=== PATIENT | male | born 1990 | race Hispanic/Latino ===

== ENCOUNTER 2021-01-30 22:35 | Emergency (ER) | payer OTHER ==
[~2021-01-30] VITALS: Ht 167.6 cm; Wt 74.9 kg
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
[2021-01-31] MEDS ORDERED: OXYCODONE/APAP 5MG/325MG(BULK FOR ED) 1 TABLET PO ONE (02:30)
[2021-01-31] MEDS ORDERED: PERC5TAB12 PO (02:33)
[2021-01-31 02:56] VITALS: BP 140/87
== END 2021-01-31 02:58 | disposition home or self-care (01) ==
LOC: M ED 22:35
DX: S52.311A Greenstick fracture of shaft of radius, right arm, initial encounter for closed fracture (principal); W22.09XA Striking against other stationary object, initial encounter; Y92.9 Unspecified place or not applicable; Y93.9 Activity, unspecified; Y99.1 Military activity

== ENCOUNTER 2021-02-12 12:59 | Day surgery (SDC) | payer OTHER ==
[~2021-02-12] VITALS: Ht 167.6 cm; Wt 72.6 kg
[~2021-02-12 12:59] MED LIST: LR 1,000 ML IV ONE; PERC5TAB12 PO; ceFAZolin SOD 2 GM in IV 1 EA IV ONE
[2021-02-12] MEDS ORDERED: LIDOCAINE 2% 100MG/5ML SDV (FOR ANES.) As Ordered ONE (13:44)
[2021-02-12] MEDS ORDERED: fentaNYL 100 MCG/2 ML INJECTION (J3010) As Ordered ONE ×2 (13:44→17:45)
[2021-02-12] MEDS ORDERED: propofoL 200 MG/20 ML VIAL As Ordered ONE ×2 (13:44→14:50)
[2021-02-12] MEDS ORDERED: MIDAZOLAM INJ 2MG/2ML VIAL (J2250 PER 1MG) As Ordered ONE (13:44)
[2021-02-12] MEDS ORDERED: ROCURONIUM BROMIDE 50 MG/5 ML VIAL As Ordered ONE (13:44)
[2021-02-12] MEDS ORDERED: BUPIVACAINE/EPIN 0.25% 30 ML VIAL As Ordered ONE (13:52)
[2021-02-12] MEDS ORDERED: TRANEXAMIC ACID 100 MG/ML 10ML VIAL As Ordered ONE ×3 (14:48→16:53)
[2021-02-12] MEDS ORDERED: HYDROmorphone HCL 2 MG/ML 1ML VIAL As Ordered ONE (14:58)
[2021-02-12] MEDS ORDERED: ONDANSETRON 4MG/2ML VIAL As Ordered ONE ×2 (15:07→17:45)
[2021-02-12] MEDS ORDERED: KETOROLAC 60MG 2ML VIAL As Ordered ONE (15:07)
[2021-02-12] MEDS ORDERED: SUGAMMADEX SODIUM 500 MG/5 ML VIAL (BRIDION) As Ordered ONE (15:08)
[2021-02-12] MEDS ORDERED: VANCOMYCIN 1000MG/20ML VIAL As Ordered ONE (16:20)
--- NOTE | 2021-02-12 16:45 | REP ---
INDICATION: RIGHT RADIUS OPEN REDUCTION/ HARDWARE REMOVAL. COMPARISON: Radiographs 01/30/2021. TECHNIQUE: Multiple C-arm views right radius. FINDINGS: Metallic plate and multiple screws are seen transfixing a fracture of the radius. The osseous structures appear well aligned. IMPRESSION: 43 seconds fluoroscopy time utilized. <Electronically signed by Sandeep Reid > 02/12/21 [id number]
[2021-02-12] MEDS ORDERED: ONDANSETRON 4MG/2ML VIAL IV PRN (17:45)
[2021-02-12] MEDS ORDERED: LR 1,000 ML IV SCH (17:45)
[2021-02-12] MEDS: fentaNYL 100 MCG/2 ML INJECTION (J3010) IV PRN ×4 (17:50→18:06)
[2021-02-12] MEDS: oxyCODONE 5MG TAB PO PRN ×2 (17:54→18:40)
[2021-02-12] MEDS: MORPHINE 2 MG/ML 1ML VIAL (J2270) IV PRN ×2 (18:13→18:40)
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
[2021-02-12] MEDS ORDERED: METOCLOPRAMIDE INJ 10MG/2ML VIAL (J2765 PER 1) IV SCH (19:50)
[2021-02-12 20:10] VITALS: BP 137/81
== END 2021-02-12 20:30 | disposition home or self-care (01) ==
LOC: M SDC 12:59
PROVIDERS: ATTEND Orthopaedic Surgery
DX: S52.321A Displaced transverse fracture of shaft of right radius, initial encounter for closed fracture (principal); T84.89XA Other specified complication of internal orthopedic prosthetic devices, implants and grafts, initial encounter; Z87.81 Personal history of (healed) traumatic fracture; W17.89XA Other fall from one level to another, initial encounter; Y92.89 Other specified places as the place of occurrence of the external cause; F17.210 Nicotine dependence, cigarettes, uncomplicated
CPT/HCPCS: 20680; 25515; 76000; C1713; C1762; J0690; J1170; J1885; J2250; J2270; J2405; J2765; J3010; J3370